=== PATIENT | female | born 2000 | race Two or more races ===

== ENCOUNTER 2024-06-16 21:38 | Emergency (ER) | payer MEDICAID, SELFPAY ==
[2024-06-16 21:39] VITALS: BMI 44.4
--- NOTE | 2024-06-16 22:23 | EDNOTE_ITS ---
ED Abdominal Pain RME/HPI General Chief Complaint: Abdominal Pain Stated complaint: RIGHT LOWER ABDOMINAL PAIN, LEG FEELS NUMB Time seen by provider: 06/16/24 22:17 Arrival date/time: 06/16/24 21:38 RME / HPI RME / HPI narrative: This section includes all my notes and documentations, including HPI, PE, and ED course. Salinas Carter MD HPI: 23yo female presents to the ED for complaints of RLQ and right groin pain x 3-4 days. Patient reports associated right leg numbness and nausea on and off. Patient took ibuprofen at home without any alleviation of symptoms. Patient denies any vomiting, dysuria, urinary/bowel incontinence, back pain or any other associated symptoms. No other complaints reported. ROS: All negative except as documented in HPI. Physical Exam: General: Alert and oriented. No acute distress when remaining still. Eyes: Conjunctivae and lids clear. ENT: No nasal congestion. Neck: Supple. Heart: RRR. Lungs: No respiratory distress. Good air movement. No rhonchi, wheezing, rales. Abdomen: Soft with equivocal RLQ tenderness. Normal bowel sounds. No distension. No rebound or guarding. Back: No CVA tenderness. Skin: Warm and dry. Neuro: Alert and oriented X 3. Right groin: Tenderness to palpation. Slightly limited range of motion due to pain. I reviewed all diagnostic test results. My review of the abdominal and lumbar spine CT reports is no acute findings. Blood tests and urine tests unremarkable. At this point, diagnoses include musculoskeletal pain due to muscle strain. Treatment here included Tylenol with Codeine and Zofran. Significant improvement noted. Recommended supportive care. Based on my best medical judgment, made decision no further evaluation or treatment indicated at this time. Patient understands and agrees to the discharge instructions customized and printed, see below. Discharge Instructions from Dr. Carter printed for you: 1. After extensive evaluation, there is no emergency such as appendicitis needing urgent surgery. 2. Your right-sided lower abdominal pain is due to tears in small muscle fibers. Probably related to your work. 3. Activity as tolerated. 4. Apply ice or heat if helpful. 5. Ibuprofen 800 mg every 6-8 hours today and tomorrow to decrease inflammation then as needed. 6. Cyclobenzaprine and lidocaine pain patches as needed. 7. See a private doctor on 06/21/2024 for recheck and further care and second opinion. Ask to review all test results and official radiology reports, to make sure you receive all necessary follow-ups and monitoring. To make sure there is no serious intra-abdominal condition, ask for help with more investigation not available here in the ER. Such as EGD or scoping the stomach, colonoscopy or scoping the colon, and referral to see program architect. 8. Seek immediate medical care with worsening or with any concerns. Salinas Carter MD Related Data Previous Rx's ?Medication ?Instructions ?Recorded cyclobenzaprine 5 mg tablet 5 mg PO TID PRN muscle spa sm #15 06/17/24 tabs ibuprofen 800 mg tablet 800 mg PO Q8H PRN pain #30 t abs 06/17/24 lidocaine 5 % topical patch 2 patch topical QDAY PRN p ain #30 06/17/24 (Lidoderm) ea Allergies Allergy/AdvReac Type Severity Reaction Status Date / Time No Known Allergies Allergy Verified 05/15/20 21:56 Review of Systems Review of Systems Systems Reviewed: All systems reviewed, normal except as documented Past Medical History Past Medical History CARDIAC: Negative Congestive Heart Failure RESPIRATORY: Negative Chronic Obstructive Pulmonary Disease (COPD) GENITOURINARY: Negative Renal Disease ENDOCRINE: Negative Diabetes Mellitus Type 1 or Diabetes Mellitus Type 2 Social History SMOKING STATUS: Never smoker ED Exam Narrative Physical exam: As noted in HPI. Course Quality Measures none Orders Category Date Time Status CT abdomen pelvis wo con Stat Exams 06/16/24 22:[address] lumbar spine wo con Stat Exams 06/16/24 22:25 Taken CBC Stat Lab 06/16/24 22:32 Completed CMP [Comprehensive Metabolic Panel] Stat Lab 06/16/24 22:32 Completed HCG Qualitative,Urine Stat Lab 06/16/24 22:55 Completed Magnesium Stat Lab 06/16/24 22:32 Completed UA, C/S IF [Urinalysis, C/S if Indicated] Stat Lab 06/16/24 22:55 Completed ACETAMINOPHEN w/COD 300-30 [Tylenol w/Cod #3] Med 06/16/24 22:24 Discontinued 2 tab PO X1 ONE Ondansetron Odt [Zofran Odt] Med 06/16/24 22:24 Discontinued 4 mg PO X1 ONE Vital Signs Vital signs: Vital Signs Temperature 99.2 F 06/16/24 22:38 Pulse Rate 68 06/16/24 22:38 Respiratory Rate 16 06/16/24 22:38 Blood Pressure 149/90 H 06/16/24 22:38 Pulse Oximetry (%) 99 06/16/24 22:38 Oxygen Delivery Method Room Air 06/16/24 22:38 Abdominal Pain MDM MDM Narrative MDM Narrative:: Scribe Attestation: 06/16/24 Alisson Orozco am scribing for and in the presence of Dr. Carter. Patient data External records reviewed:: [facility] previous records (Per chart review, patient has no relevant previous ED visits.) Clinical information provided by:: patient Social determinants that could affect healthcare access:: none Patient has the following chronic illnesses:: none How is presenting disease/condition affected by chronic disease/condition?: no chronic disease Evaluation data The following diagnostics were reviewed and interpreted by me:: lab results and radiology exam(s) Lab and/or radiology exams considered but not ordered:: none Interpretation Summary: Muscle strain Medications / Prescriptions Medications or Prescriptions considered but not ordered:: none Medication administrations:: Medication Administration History Discontinued Medications Acetaminophen/Codeine Phosphate (Acetaminophen W/Cod 300-30 Tablet) 2 tab PO X1 ONE Stop: 06/16/24 22:25 Last Admin: 06/17/24 00:20 Dose: 2 tab Documented By: SEYMOUR Ondansetron HCl (Ondansetron Odt 4 Mg Tabrap) 4 mg PO X1 ONE; Protocol Stop: 06/16/24 22:25 Last Admin: 06/17/24 00:20 Dose: 4 mg Documented By: SEYMOUR Tylenol with Codeine, Zofran Consultations Consultation(s) initiated? (list below): No Diagnosis Differential diagnosis abdominal pain: acute appendicitis, calculus of kidney, constipation, diverticulitis, endometriosis, gastroenteritis, pancreatitis, small bowel obstruction and other (Musculoskeletal pain) Most likely diagnosis given after review of the tests above:: muscle strain Admission Indicated Admission indicated?: not indicated Explain why admission is indicated or not indicated:: No criteria for admission. Admission Request Was there a request for admission?: No Disposition Plan Disposition Plan: Discharge Discharge Attestation Discharge Attestation: The patient and all family members were given an opportunity to ask questions and understood the discharge instructions. Discharge instructions specifically effects, indications for sooner follow up or return to the emergency department, and the expected course of current diagnosis. Patient condition: Stable Discharge Plan Plan Patient Disposition: HOME (Self Care) Prescriptions/Referrals Prescriptions/Med Rec: New ibuprofen 800 mg tablet 800 mg PO Q8H PRN (Reason: pain) Qty: 30 0RF lidocaine [Lidoderm] 5 % adhesive patch,medicated 2 patch topical QDAY PRN (Reason: pain) Qty: 30 0RF Rx Instructions: leave on most painful area for up to 12 hrs cyclobenzaprine 5 mg tablet 5 mg PO TID PRN (Reason: muscle spasm) Qty: 15 0RF Referrals: No Primary/Family,Physician [Primary Care Provider] - In 1 week Problem List Clinical Impression: Abdominal muscle strain Patient/Caregiver Discharge Instructions Discharge Activity: activity as tolerated Education Materials: ED Muscle Strain, Abdomen Additional Instructions: Discharge Instructions from Dr. Carter printed for you: 1. After extensive evaluation, there is no emergency such as appendicitis needing urgent surgery. 2. Your right-sided lower abdominal pain is due to tears in small muscle fibers. Probably related to your work. 3. Activity as tolerated. 4. Apply ice or heat if helpful. 5. Ibuprofen 800 mg every 6-8 hours today and tomorrow to decrease inflammation then as needed. 6. Cyclobenzaprine and lidocaine pain patches as needed. 7. See a private doctor on 06/21/2024 for recheck and further care and second opinion. Ask to review all test results and official radiology reports, to make sure you receive all necessary follow-ups and monitoring. To make sure there is no serious intra-abdominal condition, ask for help with more investigation not available here in the ER. Such as EGD or scoping the stomach, colonoscopy or scoping the colon, and referral to see program architect. 8. Seek immediate medical care with worsening or with any concerns. Instrucciones de ilana del Dr. Carter, impresas para usted: 1. Tras jaylin evaluaci?n exhaustiva, no se observa ninguna emergencia, fer apendicitis, que requiera cirug?a urgente. 2. El dolor en el lado derecho del abdomen inferior se debe a desgarros en fibras musculares stan?as. Probablemente est? relacionado con bone trabajo. 3. Realice actividades seg?n lo tolere. 4. Aplique hielo o calor si le resulta ?til. 5. Ibuprofeno 800 mg cada 6-8 horas hoy y ma?verónica para disminuir la inflamaci?n, y luego seg?n sea necesario. 6. Parches analg?sicos de ciclobenzaprina y lidoca?na, seg?n sea necesario. 7. Consulte con un m?dico particular el 21/06/2024 para jaylin revisi?n, atenci?n adicional y jaylin segunda opini?n. Solicite la revisi?n de todos los resultados de las pruebas y los informes radiol?gicos oficiales para asegurarse de recibir todos los controles y monitoreo necesarios. Para asegurarse de que no haya jaylin afecci?n intraabdominal grave, solicite ayuda con estudios adicionales que no est?n disponibles en urgencias. Fer EGD o endoscopia g?strica, colonoscopia o endoscopia de colon, y derivaci?n a un gastroenter?logo. 8. Busque atenci?n m?dica inmediata si presenta empeoramiento o cualquier inquietud. Print Language: Latvian Stand Alone Forms: [employer] Award Info., Work/School Release, Patient Portal Info Letter
--- NOTE | 2024-06-16 22:25 | XR_ITS ---
Examination: CT abdomen and pelvis without contrast. Coronal 3-D reconstructions. Sagittal 2-D reconstructions. Date and time of exam:June 16, 2024 11:58 PM Indications: Right lower abdominal pain 3 days CTDI: vol (mGy): 18.7 DLP: (mGycm): 885 Technique: Axial images of the abdomen have been obtained, 3 mm slice thickness Intravenous contrast material has not been administered. Low dose protocols were performed. One or more of the following dose reduction techniques were used; automated exposure control, adjustment of the mA and/or KV according to patient size, use of iterative reconstruction technique. Findings: No focal liver or splenic lesions Gallstones No pancreatic or adrenal mass No renal or ureteral calculi, no hydronephrosis Normal appendix No bowel obstruction No pelvic mass Urinary bladder intact Impression: Cholelithiasis
--- NOTE | 2024-06-16 22:25 | XR_ITS ---
Examination: CT lumbar spine, without contrast. 2-D sagittal reconstructions. 2-D coronal reconstructions. 3-D reconstructions. Date and time of exam:June 17, 2024 0003 hrs. Indications: Lower back pain radiating down the right leg beginning 3 days ago CTDI: vol (mGy):30.3 DLP: (mGycm):1016 Technique: Multiple 1.25 mm axial sections of the lumbar spine without intravenous contrast have been obtained. 2-D sagittal and coronal reconstructions have been obtained. 3-D reconstructions have been obtained. Low dose protocols were performed. One or more of the following dose reduction techniques were used; automated exposure control, adjustment of the mA and/or KV according to patient size, use of iterative reconstruction technique. Findings: Satisfactory alignment lumbar vertebral bodies No lumbar fracture No spondylolisthesis Soft tissue settings demonstrate no focal lumbar disc protrusion Impression: No lumbar fracture No focal lumbar disc protrusion Consider MRI lumbar spine without contrast follow-up as clinically warranted
[2024-06-16 22:38] VITALS: BP 149/90; PULSE 68; RESP 16; TEMP 37.3; O2SAT 99
[2024-06-16 22:54] LABS: Basophils # (Auto) 0.1 Thou/mm3 (0.0-0.2); Basophils % (Auto) 1 % (0-2.5); Eosinophils # (Auto) 0.3 Thou/mm3 (0.0-0.5); Eosinophils % (Auto) 3 % (0-10); Hematocrit 37.3 % (36.0-46.0); Hemoglobin 12.9 g/dL (12.0-16.0); Immature Granulocytes % (Auto) 0 % (0-0); Immature Granulocytes Auto 0.02 Thou/mm3 (0.00-0.00); Lymphocytes # (Auto) 1.9 Thou/mm3 (1.0-4.8); Lymphocytes % (Auto) 21 % (10-50); Mean Corpuscular HGB Conc 34.6 g/dl (31.0-37.0); Mean Corpuscular Hemoglobin 28.7 pg (25.0-35.0); Mean Corpuscular Volume 83 fL (80-100); Monocytes # (Auto) 0.6 Thou/mm3 (0.0-0.8); Monocytes % (Auto) 7 % (0-12); Neutrophils # (Auto) 6.2 Thou/mm3 (1.8-7.7); Neutrophils % (Auto) 68 % (37-80); Nucleated Red Blood Cell % 0 /100 WBC (0); Platelet Count 282 Thou/mm3 (140-440); RDW Standard Deviation 39.9 fL (36.4-46.3); Red Blood Count 4.49 Miln/mm3 (4.00-5.20)
[2024-06-16 23:03] LABS: Collection Type, Urine Clean Catch; RBC,Urine 0 /hpf (0-3); WBC,Urine 0 /hpf (0-5)
[2024-06-16 23:15] LABS: Anion Gap 9 (7-16); BUN/Creatinine Ratio 13 Ratio (12-20); Blood Urea Nitrogen 9 mg/dL (9-23); Carbon Dioxide 25.4 mMol/L (20.0-31.0); Chloride 109 mMol/L (98-107); Creatinine (Component) 0.7 mg/dL (0.6-1.3); Potassium 3.9 mMol/L (3.4-5.1); Sodium 143 mMol/L (136-145)
[2024-06-16 23:16] LABS: Alanine Aminotransferase 14 U/L (10-49); Albumin, Serum 4.4 gm/dL (3.5-5.0); Albumin/Globulin Ratio 1.6 (1.2-2.2); Alkaline Phosphatase 87 U/L (46-116); Aspartate Amino Transferase 12 U/L (0-34); Bilirubin,Total 0.4 mg/dL (0.3-1.2); Calcium 9.3 mg/dL (8.3-10.6); Calcium (Corrected) 9.3 mg/dL (8.5-10.1); Estimated Creatinine Clearance 127.7 mL/min (>60); Globulin 2.8 gm/dL (2.3-3.5); Glucose 104 mg/dL (74-106); Osmolality,Calculated 283 (275-295); Total Protein 7.2 gm/dL (5.7-8.2); eGFR > 60 See Note
[2024-06-16 23:27] LABS: Bacteria,Urine Rare; Bilirubin,Urine Negative (Negative); Blood,Urine Negative (Negative); Clarity,Urine Clear (Clear/Hazy); Color,Urine Lt-Yellow (Lt Yel-Yel); Culture Indicated,Urine Not Indicated; Glucose, Urine Negative (Negative); Ketones,Urine Negative (Negative); Leukocyte Esterase,Urine Negative (Negative); Nitrite,Urine Negative (Negative); Protein,Urine Trace (Neg - Trace); Specific Gravity,Urine 1.026 (1.001-1.035); Squamous Epithelial Cell,Urine 3 /hpf (0-5)
[2024-06-16 23:28] LABS: HCG Qualitative,Urine Negative
[2024-06-17] MEDS: ACETAMINOPHEN w/COD 300-30 TABLET 2 TAB PO (00:20)
[2024-06-17] MEDS: ONDANSETRON ODT 4 MG TABRAP PO (00:20)
--- NOTE | 2024-06-17 01:21 | PRELIM_ITS ---
CT scan of the lumbar spine without intravenous contrast (axial sections with sagittal and coronal reformats) June 17, 2024 at 0000 hours Clinical History: LBP radiating into right leg. Comparison: No prior study is available for comparison. Findings: There is no fracture or subluxation. The vertebral body height and intervertebral disc spaces are normal. The soft tissues are unremarkable. Impression: No evidence of fracture, subluxation or significant soft tissue injury. Report Electronically Signed By: Lai Bateman 06/17/2024 1:21:03 AM [EST]
--- NOTE | 2024-06-17 01:35 | PRELIM_ITS ---
CT scan of the abdomen and pelvis without intravenous contrast (axial sections with sagittal and coronal reformats) June 16, 2024 at 2358 hours Clinical History: Right lower quadrant abdominal pain. Comparison: No prior study is available for comparison. Findings: The lung bases are clear. The liver, pancreas, spleen, kidneys and adrenals are unremarkable on this noncontrast study. Gallstones without CT evidence of acute cholecystitis. No biliary duct dilation. No evidence of bowel obstruction. The appendix is within normal limits. There is no mesenteric or retroperitoneal adenopathy. The urinary bladder is unremarkable. There is no free fluid or free air. The osseous structures are unremarkable. The uterus and ovaries are within normal limits. Impression: Gallstones without CT evidence of acute cholecystitis. If acute cholecystitis is clinically suspected consider correlation with HIDA scan. Report Electronically Signed By: Lai Bateman 06/17/2024 1:34:20 AM [EST]
[2024-06-17 01:51] VITALS: BP 138/76; PULSE 76; RESP 18; TEMP 36.7; O2SAT 98
== END 2024-06-17 01:54 | disposition home or self-care (01) ==
PROVIDERS: Emergency Provider Emergency Medicine
DX: S39.011A Strain of muscle, fascia and tendon of abdomen, initial encounter (principal); X58.XXXA Exposure to other specified factors, initial encounter; R20.0 Anesthesia of skin
CPT/HCPCS: 36415; 72131; 74176; 80053; 81001; 81025; 83735; 85025; 99284; Q0162; A9270

== ENCOUNTER 2024-11-20 04:55 | Emergency (ER) | payer MEDICAID, SELFPAY ==
[2024-11-20 04:56] VITALS: BP 148/75; PULSE 104; RESP 19; TEMP 36.9; O2SAT 98
[2024-11-20 04:57] VITALS: BMI 44.4
--- NOTE | 2024-11-20 05:35 | EDRME_ITS ---
Rapid Medical Screening Exam FOR[facility] Arrival date/time: 11/20/24 04:55 24F with no significant PMH presents to ED with 2 days of LUQ pain that radiates to back and N/V. Chief Complaint: Abdominal Pain Vital signs: Vital Signs Temperature 98.4 F 11/20/24 04:56 Pulse Rate 104 H 11/20/24 04:56 Respiratory Rate 19 11/20/24 04:56 Blood Pressure 148/75 H 11/20/24 04:56 Pulse Oximetry (%) 98 11/20/24 04:56 Oxygen Delivery Method Room Air 11/20/24 04:56
[2024-11-20 05:55] LABS: Basophils # (Auto) 0.0 Thou/mm3 (0.0-0.2); Basophils % (Auto) 0 % (0-2.5); Eosinophils # (Auto) 0.1 Thou/mm3 (0.0-0.5); Eosinophils % (Auto) 1 % (0-10); Hematocrit 40.0 % (36.0-46.0); Hemoglobin 13.6 g/dL (12.0-16.0); Immature Granulocytes Auto 0.02 Thou/mm3 (0.00-0.00); Lymphocytes # (Auto) 0.9 Thou/mm3 (1.0-4.8); Lymphocytes % (Auto) 8 % (10-50); Mean Corpuscular HGB Conc 34.0 g/dl (31.0-37.0); Mean Corpuscular Hemoglobin 28.6 pg (25.0-35.0); Mean Corpuscular Volume 84 fL (80-100); Monocytes # (Auto) 0.5 Thou/mm3 (0.0-0.8); Monocytes % (Auto) 4 % (0-12); Neutrophils # (Auto) 9.1 Thou/mm3 (1.8-7.7); Neutrophils % (Auto) 86 % (37-80); Nucleated Red Blood Cell # 0.00 Thou/mm3 (0.00-0.00); Nucleated Red Blood Cell % 0 /100 WBC (0); Platelet Count 298 Thou/mm3 (140-440); RDW Standard Deviation 39.6 fL (36.4-46.3); Red Blood Count 4.75 Miln/mm3 (4.00-5.20); White Blood Count 10.5 Thou/mm3 (3.6-11.0)
[2024-11-20] MEDS: FAMOTIDINE 20 MG TABLET 40 MG PO (06:06)
[2024-11-20] MEDS: ONDANSETRON ODT 4 MG TABRAP PO (06:06)
[2024-11-20 06:13] LABS: Alanine Aminotransferase 23 U/L (10-49); Albumin, Serum 4.6 gm/dL (3.5-5.0); Albumin/Globulin Ratio 1.7 (1.2-2.2); Alkaline Phosphatase 99 U/L (46-116); Anion Gap 9 (7-16); Aspartate Amino Transferase 18 U/L (0-34); BUN/Creatinine Ratio 11 Ratio (12-20); Bilirubin,Total 1.2 mg/dL (0.3-1.2); Blood Urea Nitrogen 9 mg/dL (9-23); Calcium 9.7 mg/dL (8.3-10.6); Calcium (Corrected) 9.7 mg/dL (8.5-10.1); Carbon Dioxide 24.5 mMol/L (20.0-31.0); Chloride 106 mMol/L (98-107); Creatinine (Component) 0.8 mg/dL (0.6-1.3); Estimated Creatinine Clearance 110.8 mL/min (>60); Globulin 2.7 gm/dL (2.3-3.5); Glucose 113 mg/dL (74-106); Osmolality,Calculated 277 (275-295); Potassium 4.0 mMol/L (3.4-5.1); Sodium 139 mMol/L (136-145); Total Protein 7.3 gm/dL (5.7-8.2); eGFR > 60 See Note
--- NOTE | 2024-11-20 06:15 | XR_ITS ---
Examination: CT abdomen and pelvis without contrast. Coronal 3-D reconstructions. Sagittal 2-D reconstructions. Date and time of exam:November 20, 2020, 0821 hrs. Indications: Nausea vomiting epigastric pain beginning 1:00 AM this morning Comparison: June 16, 2024. CTDI: vol (mGy): 18.1 DLP: (mGycm): 874 Technique: Axial images of the abdomen have been obtained, 3 mm slice thickness Intravenous contrast material has not been administered. Low dose protocols were performed. One or more of the following dose reduction techniques were used; automated exposure control, adjustment of the mA and/or KV according to patient size, use of iterative reconstruction technique. Findings: No focal liver or splenic lesions Gallstones Gallbladder wall does not appear thickened No pancreatic or adrenal mass No renal or ureteral calculi, no hydronephrosis A few loops of fluid distended small bowel in the lower abdomen, for instance axial image 135 No diverticulitis Normal appendix Anteverted uterus, no uterine or adnexal mass Contracted urinary bladder The osseous structures are intact Impression: Cholelithiasis, consider hepatobiliary sonography follow-up to confirm no gallbladder wall thickening Negative for pancreatitis A few loops of fluid distended small bowel in the lower abdomen, consider ileus, enteritis such as Crohn's disease, clinical correlation advised
[2024-11-20 06:46] VITALS: BP 149/92; PULSE 82; RESP 19; TEMP 36.9; O2SAT 98
[2024-11-20 06:46] LABS: INR 1.0 (0.9-1.3); Prothrombin Time 10.7 Seconds (9.0-12.2)
[2024-11-20 06:51] VITALS: PULSE 87
[2024-11-20] MEDS: KETOROLAC INJ 30 MG/ML VIAL 15 MG IVP (06:52)
[2024-11-20] MEDS: SODIUM CHLORIDE 0.9% 1000 ML 1,000 ML 999 ML IV (06:52)
--- NOTE | 2024-11-20 06:54 | XR_ITS ---
Examination: Ribs, left, with PA chest, 5 views Technique: Chest PA, RIBS AP, RPO, LPO, AP coned lower ribs 5 views Exam date and time: November 20, 2024, 0736 hrs. Indications: Left rib pain beginning 12 hours ago, no trauma Findings: Normal heart size. No pneumothorax. Lungs are clear. Left clavicle and ribs on the rib views appear intact Impression: No active disease in the chest No acute rib fractures
[2024-11-20 06:56] LABS: Collection Type, Urine Clean Catch; RBC,Urine 0 /hpf (0-3); WBC,Urine 0 /hpf (0-5)
--- NOTE | 2024-11-20 06:57 | PD.EDABDPN ---
ED Abdominal Pain RME/HPI General Chief Complaint: Abdominal Pain Stated complaint: LEFT UPPER ABD PAIN, N/V Time seen by provider: 11/20/24 06:17 Arrival date/time: 11/20/24 04:55 Limitations: no limitations RME / HPI RME / HPI narrative: 11/20/24 04:55 24F with no significant PMH presents to ED with 2 days of LUQ pain that radiates to back and N/V. DR. RAMIREZ MAIN ED EVALUATION: 24-year-old female with no known medical history, allergies, or social history presents to the Emergency Department with left upper abdominal and rib pain since 1 AM. She localizes the pain under her left breast and rates it 7/10. Symptoms are associated with nausea and vomiting since yesterday. She denies constipation, urinary symptoms, or fevers. Related Data Previous Rx's ?Medication ?Instructions ?Recorded cyclobenzaprine 5 mg tablet 5 mg PO TID PRN muscle spasm #15 06/17/24 tabs ibuprofen 800 mg tablet 800 mg PO Q8H PRN pain #30 tabs 06/17/24 lidocaine 5 % topical patch 2 patch topical QDAY PRN pain #30 06/17/24 (Lidoderm) ea Allergies Allergy/AdvReac Type Severity Reaction Status Date / Time No Known Allergies Allergy Verified 11/20/24 04:56 Review of Systems Review of Systems Systems Reviewed: All systems reviewed, normal except as documented Past Medical History Social History SMOKING STATUS: Never smoker SUBSTANCE USE: does not use ALCOHOL: Never ED Exam General Limitations: Present no limitations General appearance: Present alert, in no apparent distress and obese Head Head exam: Present atraumatic, normocephalic and normal inspection Eye Eye exam: Present normal appearance, PERRL and EOMI ENT ENT exam: Present normal exam, normal oropharynx and mucous membranes moist Neck Neck exam: Present normal inspection, full ROM and trachea midline Chest Chest inspection: Present symmetric chest wall rise and tenderness (tenderness over the left T6 region (anteriorly)) Respiratory Respiratory exam: Present normal lung sounds bilaterally Cardiovascular Cardiovascular exam: Present regular rate, normal rhythm and normal heart sounds Abdominal Exam Abdominal exam: Present soft and normal bowel sounds Extremities Exam Extremities exam: Present normal inspection and full ROM Back Exam Back exam: Present normal inspection and full ROM Neurological Exam Neurological exam: Present alert, oriented X3 and CN II-XII intact Psychiatric Psychiatric exam: Present normal affect and normal mood Skin Skin exam: Present warm, dry, intact and normal color Course Quality Measures none Orders Category Date Time Status Business Communications Instructor NOW Care 11/20/24 06:15 Active Continuous Pulse Oximetry NOW Care 11/20/24 06:15 Completed Insert IV NOW Care 11/20/24 06:[address] abdomen pelvis wo con Stat Exams 11/20/24 06:15 Completed XR ribs LT min 3V w CXR1V Stat Exams 11/20/24 06:54 Completed CBC Stat Lab 11/20/24 05:48 Completed CMP [Comprehensive Metabolic Panel] Stat Lab 11/20/24 05:48 Completed Drug Screen,Urine Stat Lab 11/20/24 06:29 Completed HCG Qualitative,Urine Stat Lab 11/20/24 06:29 Completed Prothrombin Time with INR Stat Lab 11/20/24 05:48 Completed Urinalysis, C/S if Indicated Stat Lab 11/20/24 06:29 Completed Famotidine [Pepcid] Med 11/20/24 05:34 Discontinued 40 mg PO X1 ONE Ketorolac Inj [Toradol Inj] Med 11/20/24 06:16 Discontinued 15 mg IVP X1 ONE Ondansetron Odt [Zofran Odt] Med 11/20/24 05:34 Discontinued 4 mg PO X1 ONE Sodium Chloride 0.9% 1000 ml [Ns] 1,000 ml Med 11/20/24 06:15 Discontinued IV 999 mls/hr Vital Signs Vital signs: Vital Signs Temperature 98.4 F 11/20/24 04:56 Pulse Rate 104 H 11/20/24 04:56 Respiratory Rate 19 11/20/24 04:56 Blood Pressure 148/75 H 11/20/24 04:56 Pulse Oximetry (%) 98 11/20/24 04:56 Oxygen Delivery Method Room Air 11/20/24 04:56 Abdominal Pain MDM MDM Narrative MDM Narrative:: I, Kristi Leggett am scribing for and in the presence of Dr. Ramirez. Patient data External records reviewed:: [facility] previous records Clinical information provided by:: patient Social determinants that could affect healthcare access:: none Patient has the following chronic illnesses:: Denies any PMHx, surgeries, daily medications, or known allergies. How is presenting disease/condition affected by chronic disease/condition?: no chronic disease Evaluation data The following diagnostics were reviewed and interpreted by me:: lab results and radiology exam(s) Lab and/or radiology exams considered but not ordered:: none Interpretation Summary: Procedure(s): XR ribs LT min 3V w CXR1V Accession Number(s): [id number] cc: Masoud Ramirez MD; Oscar De Luna MD; NO PRIMARY/FAMILY,PHYSICIAN~ Examination: Ribs, left, with PA chest, 5 views Technique: Chest PA, RIBS AP, RPO, LPO, AP coned lower ribs 5 views Exam date and time: November 20, 2024, 0736 hrs. Indications: Left rib pain beginning 12 hours ago, no trauma Findings: Normal heart size. No pneumothorax. Lungs are clear. Left clavicle and ribs on the rib views appear intact Impression: No active disease in the chest No acute rib fractures Dictated By: Oscar De Luna MD Procedure(s): CT abdomen pelvis wo con Accession Number(s): [id number] cc: Masoud Ramirez MD; Oscar De Luna MD; NO PRIMARY/FAMILY,PHYSICIAN~ Examination: CT abdomen and pelvis without contrast. Coronal 3-D reconstructions. Sagittal 2-D reconstructions. Date and time of exam:November 20, 2020, 0821 hrs. Indications: Nausea vomiting epigastric pain beginning 1:00 AM this morning Comparison: June 16, 2024. CTDI: vol (mGy): 18.1 DLP: (mGycm): 874 Technique: Axial images of the abdomen have been obtained, 3 mm slice thickness Intravenous contrast material has not been administered. Low dose protocols were performed. One or more of the following dose reduction techniques were used; automated exposure control, adjustment of the mA and/or KV according to patient size, use of iterative reconstruction technique. Findings: No focal liver or splenic lesions Gallstones Gallbladder wall does not appear thickened No pancreatic or adrenal mass No renal or ureteral calculi, no hydronephrosis A few loops of fluid distended small bowel in the lower abdomen, for instance axial image 135 No diverticulitis Normal appendix Anteverted uterus, no uterine or adnexal mass Contracted urinary bladder The osseous structures are intact Impression: Cholelithiasis, consider hepatobiliary sonography follow-up to confirm no gallbladder wall thickening Negative for pancreatitis A few loops of fluid distended small bowel in the lower abdomen, consider ileus, enteritis such as Crohn's disease, clinical correlation advised Dictated By: Oscar De Luna MD Medications / Prescriptions Medications or Prescriptions considered but not ordered:: none Medication administrations:: Medication Administration History Discontinued Medications Famotidine (Famotidine 20 Mg Tablet) 40 mg PO X1 ONE Stop: 11/20/24 05:35 Last Admin: 11/20/24 06:06 Dose: 40 mg Documented By: CVL Sodium Chloride (Ns) 1,000 mls @ 999 mls/hr IV .Q1H1M ONE Stop: 11/20/24 07:15 Last Infusion: 11/20/24 07:55 Dose: Infused Documented By: Admin: 11/20/24 06:52 Dose: 999 mls/hr Documented By: BD Ketorolac Tromethamine (Ketorolac Inj 30 Mg/Ml Vial) 15 mg IVP X1 ONE Stop: 11/20/24 06:17 Last Admin: 11/20/24 06:52 Dose: 15 mg Documented By: BD Ondansetron HCl (Ondansetron Odt 4 Mg Tabrap) 4 mg PO X1 ONE; Protocol Stop: 11/20/24 05:35 Last Admin: 11/20/24 06:06 Dose: 4 mg Documented By: CVL see above Consultations Consultation(s) initiated? (list below): No Diagnosis Differential diagnosis abdominal pain: other (Gastritis, splenic pathology, and musculoskeletal pain.) Most likely diagnosis given after review of the tests above:: Musculoskeletal pain Cholelithiasis Admission Indicated Admission indicated?: not indicated Admission Request Was there a request for admission?: No Disposition Plan Disposition Plan: Discharge Discharge Attestation Discharge Attestation: The patient and all family members were given an opportunity to ask questions and understood the discharge instructions. Discharge instructions specifically effects, indications for sooner follow up or return to the emergency department, and the expected course of current diagnosis. Patient condition: Stable Discharge Plan Plan Patient Disposition: HOME (Self Care) Patient condition on transfer: Stable Prescriptions/Referrals Prescriptions/Med Rec: No Action ibuprofen 800 mg tablet 800 mg PO Q8H PRN (Reason: pain) Qty: 30 0RF lidocaine [Lidoderm] 5 % adhesive patch,medicated 2 patch topical QDAY PRN (Reason: pain) Qty: 30 0RF Rx Instructions: leave on most painful area for up to 12 hrs cyclobenzaprine 5 mg tablet 5 mg PO TID PRN (Reason: muscle spasm) Qty: 15 0RF Referrals: No Primary/Family,Physician [Primary Care Provider] - In 1 week Problem List Clinical Impression: Musculoskeletal pain, Cholelithiasis Patient/Caregiver Discharge Instructions Additional Instructions: Take Tylenol 500 mg 2 tabs every 6 hours PLUS Advil 200 mg gel 2 tablets as needed for pain. Please follow-up with your primary care physician within 2-3 days. Consider surgical consult for cholelithiasis by your PCP. Return to the Emergency Department as needed. [place] Tylenol 500 mg 2 tabletas cada 6 horas Y TAMBIEN Advil 200 mg gel 2 tabletas seg?n sea necesario para el dolor. Vance un seguimiento con bone m?dico de cabecera dentro de 2-3 bailon. Considere consultar a bone m?dico de cabecera con jaylin consulta quir?rgica para colelitiasis. Regrese al Departamento de Emergencias seg?n sea necesario. Print Language: Romanian Stand Alone Forms: [employer] Award Info., Patient Portal Info Letter
--- NOTE | 2024-11-20 07:04 | PC.NURSE ---
Report received from pm nurse, patient lying in [facility]. Patient to er with c/o left upper abd. pain with n/v/d since 1 am. Currently patient states pain to left upper abdomen decreased to 1/10 at this time, however, patient states she still feels nauseated, skin warm dry and pink, call light within reach.
[2024-11-20 07:27] LABS: Amorphous Crystals,Urine Present (Absent); Bilirubin,Urine Negative (Negative); Blood,Urine Negative (Negative); Color,Urine Yellow (Lt Yel-Yel); Culture Indicated,Urine Not Indicated; Glucose, Urine Negative (Negative); Ketones,Urine Negative (Negative); Leukocyte Esterase,Urine Negative (Negative); Nitrite,Urine Negative (Negative); PH,Urine 5.5 (5.0-7.0); Protein,Urine 1+ (Neg - Trace); Specific Gravity,Urine 1.038 (1.001-1.035); Squamous Epithelial Cell,Urine 7 /hpf (0-5); Urobilinogen,Urine Negative mg/dL (0.0-1.0)
[2024-11-20 07:29] LABS: HCG Qualitative,Urine Negative
[2024-11-20 07:30] LABS: Clarity,Urine Turbid (Clear/Hazy)
[2024-11-20 07:34] LABS: Amphetamine/Methamp Scrn,U Negative (Negative); Barbiturate Screen,Urine Negative (Negative); Benzodiazepines Screen,Urine Negative (Negative); Benzoylecgonine Screen, Ur Negative (Negative); Fentanyl Screen,Urine Negative (Negative); Opiate Screen,Urine Negative (Negative); THC Screen,Urine Negative (Negative)
[2024-11-20 08:46] VITALS: BP 141/73; PULSE 72; RESP 19; TEMP 36.8; O2SAT 99
[2024-11-20 09:09] VITALS: PULSE 72
[2024-11-20 11:13] VITALS: BP 122/79; PULSE 70; RESP 20; TEMP 36.8; O2SAT 97
== END 2024-11-20 11:52 | disposition home or self-care (01) ==
PROVIDERS: Physician Assistant; Emergency Provider Family Medicine
DX: K80.20 Calculus of gallbladder without cholecystitis without obstruction (principal); M79.18 Myalgia, other site
CPT/HCPCS: 36415; 71101; 74176; 80053; 80307; 81001; 81025; 85025; 85610; 96361; 96374; 99284; J1885; J7030; Q0162; A9270